=== PATIENT | male | born 1990 | race Caucasian/White ===

== ENCOUNTER 2019-05-21 00:26 | Day surgery (SDC) | payer BC, SELFPAY ==
[2019-05-07 13:57] VITALS: BMI 32.8
[2019-05-21] VITALS (7 sets, daily range): BP systolic 90–141; BP diastolic 43–87; PULSE 57–74; RESP 12–18; TEMP 36.3–36.4; O2SAT 94–100
[2019-05-21] MEDS: LACTATED RINGERS 1,000 ML 30 ML IV CONT ×2 (11:15→15:30)
--- NOTE | 2019-05-21 12:40 | WPDANESEPPF ---
Anes - Initial Pre Proc Eval Procedure: Operation Date: 05/21/19 13:00 Proposed Procedures p Open Left Inguinal Hernia Repair with Mesh - Patric Joshua MD Date/Time: 05/21/19 12:40 Surgeon: Patric Joshua MD Pre Op Diagnosis: Left Inguinal Hernia Patient Data Age: 28 Gender: M Height: 6 ft Weight: 100.1 kg Last Vital Signs Temp 36.3 C L 05/21/19 10:47 Pulse 62 05/21/19 10:47 Resp 18 05/21/19 10:47 BP 141/73 H 05/21/19 10:47 Pulse Ox 100 05/21/19 10:47 Allergies Allergy/AdvReac Type Severity Reaction Status Date / Time POISON EDUARD Allergy Severe Anaphylaxis Uncoded 05/21/19 11:38 Home Medications Medication Instructions Recorded Confirmed Type ascorbic acid (vitamin C) 500 mg PO DAILY 05/07/19 05/21/19 History vitamin B complex [B 1 tablet PO DAILY 05/07/19 05/21/19 History Complex-Vitamin B12] Patient hx anesthesia problems: none Family hx anesthesia problems: none PMFSH Past Medical History Medical History History of asthma Surgical History Surgical History History of placement of ear tubes [place] teeth extracted Family History Family History Father High cholesterol Unknown Diabetes mellitus Heart disease Social History Social History Smoking status: Never smoker Alcohol intake: current Substance use: never Gender identity (if verbalized by the patient): Male Anes - Eval Final PreProcedure Day of Procedure 05/21/19 12:40 Patient weight: obese Heart: regular rate and rhythm Lungs: clear to auscultation Airway: Mallampati scale class II Neurological: alert and oriented ASA classification: II Emergent: no Anesthetic plan: proceed Anesthesia type and monitoring: general LMA and standard monitoring Informed Consent: The patient's anesthetic plan and its attendant risks and benefits were discussed with the patient/family/POA. Questions were solicited and answers provided to the satisfaction of the patient/family/POA.
--- NOTE | 2019-05-21 12:52 | WPDHPUPDATE1 ---
History and Physical Update Update Date/Time: 05/21/19 12:52 History and Physical has been reviewed, including an updated exam of the patient. There are NO changes in the patient's condition. Risks, benefits, and alternatives have been discussed and questions answered. Patient agrees to proceed with procedure.
[2019-05-21] MEDS: ceFAZolin 2 GM/D5W 50 ML 2 GM/50 ML BAG IVPB (13:09)
--- NOTE | 2019-05-21 15:29 | PM.PROC ---
Procedure Note - Detailed Date of procedure: 05/21/19 Pre-op diagnosis: Left Inguinal Hernia Post-op diagnosis: other (1. Large direct and small indirect inguinal hernia (left)) Procedure performed: Open left inguinal hernia repair with mesh Description of procedure: The patient was placed in the supine position on the operating room table. After induction of adequate [general anesthesia using an LMA by [facility] Anesthesia staff, we carefully prepped the entire abdomen and scrotum with chlorhexidine. One sterile towel was placed underneath the scrotum. Four towels were placed around the left lower quadrant. Following this, a time-out was performed with the surgical team and the patient's surgical procedure and site was confirmed. We then carefully outlined a curvilinear incision in the left groin area and a curvilinear incision was made after introducing a mixture of local anesthetic, using 0.5% Marcaine with epinephrine and 1% Xylocaine plain as both an ilioinguinal nerve block and at the incision site with a 25 gauge needle. Following this, I carefully made the incision, and carried it down through the subcutaneous tissue. Cathleen's fascia was incised and then we identified the external oblique aponeurosis and the external ring. Following this, the same mixture of local anesthetic was infiltrated underneath the external oblique aponeurosis and this was split in the direction of it's fibers with a #15 blade initially and then using metzenbaum scissors. I then opened the external oblique through the external ring and incised this somewhat posteriorly and superiorly exposing the ilioinguinal nerve. This nerve was carefully preserved laterally and then I carefully and meticulously dissected out the cord structures at the level of the pubic tubercle. I then surrounded these structures at the level of pubic tubercle and placed a Ashley drain around them. I then carefully dissected the hernia sac up and off of the cord tissues, and brought it up and out of the incision. We carefully dissected the layers and cremasteric tissues off the hernia sac and then eventually opened the indirect hernia sac. Holding this up with 4 hemostats, I carefully dissected it off the cord structures, being careful to avoid injury to the Pampiniform plexus veins, the spermatic artery and the vas. Hernia sac was then opened and the distal portion excised. We grafts the edges of the sac externally with hemostats and dissected the surrounding structures off of it back to the internal ring. Once the hernia sac was carefully dissected back to the level of the internal ring, a [suture ligation of 2-0 silk was used to close the base of the hernia sac. Following this, a 2 - 0 silk tie was placed just below this, tied tight, and then distally the hernia sac was amputated with scissors. It was then passed off the field for pathologic evaluation along with the previous portion of lipoma of the cord and the distal end of the hernia sac which had some incarcerated omentum within it. It was then noted that there was still a good amount of fatty tissue in the inguinal canal. It appeared that there was a true direct hernia with thinning of the muscular structure of the Halsebach's triangle. Identified what appeared to be a defect consistent with opening in the peritoneum in the preperitoneal space. This was sutured up with a running 2 0 silk. The entire preperitoneal tissues and fat was then invaginated through the direct space. Following this I began reconstruction of the inguinal canal. Following this, we took care to recreate an appropriate inguinal canal. This was done by carefully dissecting from the internal ring down to the pubic bone, dissecting away any cremasteric tissue. A running suture of 0 Prolene was placed in the pubic tubercle and run up to the internal ring, approximating the Transversalis fascia to the ilioinguinal ligament. Once this was done, we then op
--- NOTE | 2019-05-21 16:04 | SUR.PHASEI ---
1555 - dr. vital at bedside talking with pt
== END 2019-05-21 17:30 | disposition home or self-care (01) ==
PROVIDERS: PCP Nurse Practitioner; Visit Provider Surgery
PROC: (CPT 49505; principal; 2019-05-21 13:00)
DX: K40.90 Unilateral inguinal hernia, without obstruction or gangrene, not specified as recurrent (principal); E66.9 Obesity, unspecified; Z68.29 Body mass index [BMI] 29.0-29.9, adult
CPT/HCPCS: 49505; 88304; A9270; C1781; J0131; J0690; J1170; J2250; J2704; J3010; J7120